=== PATIENT | male | born 1950 | race Caucasian/White ===

== ENCOUNTER → 2019-06-16 | Outpatient (CLI) | payer BC ==
[~2019-06-16] MED LIST: LISINOPRIL20 MG PO; PROTONIX 20 MG20 M1 PO
== END ==
LOC: M.MRI 06-15 11:30
DX: S83.241A Other tear of medial meniscus, current injury, right knee, initial encounter (principal); S83.281A Other tear of lateral meniscus, current injury, right knee, initial encounter; M17.11 Unilateral primary osteoarthritis, right knee; M25.461 Effusion, right knee; M65.861 Other synovitis and tenosynovitis, right lower leg; X58.XXXA Exposure to other specified factors, initial encounter; Y93.89 Activity, other specified; Y92.89 Other specified places as the place of occurrence of the external cause; Y99.8 Other external cause status

== ENCOUNTER → 2019-06-25 | Outpatient (CLI) | payer BC ==
[~2019-06-25] VITALS: Ht 180.3 cm; Wt 93.9 kg
[2019-06-25 09:30] LABS: HEMATOCRIT 44.3 % (42.0-52.0); HEMOGLOBIN 15.4 gm/dL (14.0-18.0); MCH 30.8 pg (26.0-34.0); MCHC 34.7 g/dL (28.0-37.0); MCV 88.8 fL (80.0-100.0); MPV 6.6 fl. (7.2-11.1); RBC 4.99 mil/uL (4.50-6.00); RDW-CV 15.2 % (10.5-14.5); WBC 5.9 thou/uL (4.0-11.0)
[2019-06-25 09:30] LABS: URINE BILIRUBIN NEGATIVE (Negative); URINE BLOOD TRACE (Negative); URINE CLARITY CLEAR; URINE COLOR YELLOW; URINE GLUCOSE-RANDOM NEGATIVE (Negative); URINE KETONES NEGATIVE (Negative); URINE LEUKOCYTES-REFLEX NEGATIVE (Negative); URINE NITRITE-REFLEX NEGATIVE (Negative); URINE PROTEIN NEGATIVE (Negative); URINE SPECIFIC GRAVITY 1.015 (1.005-1.030); URINE UROBILINOGEN 0.2 E.U./dl (0.2-1.0)
[2019-06-25 09:34] LABS: PROTIME 10.7 Seconds (9.20-11.50)
[2019-06-25 09:46] LABS: ALBUMIN 3.8 g/dL (3.4-5.0); CALCIUM 8.6 mg/dL (8.5-10.1); CREATININE 0.9 mg/dL (0.6-1.3); TOTAL PROTEIN 7.4 g/dL (6.4-8.2)
--- NOTE | 2019-06-25 16:42 | EKG ---
[place] [address] ELECTROCARDIOGRAM REPORT Name: ARIANA LIRA Room: PRE IN [facility]#: [id number] Admission: Attend Phys: Otilio Menendez Discharge: Date of : 54 Date of Service: 06/25/19951 Report #: [id number] THIS REPORT FOR: //name// [facility] Test Date: 2019-06-25 Test Time: 09:52:13 Pat Name: ARIANA LIRA Department: Room: Gender: Rn Ostomy: : 1950 Requested By: Michael Young Order Number: [id number] Ashly MD: Eric Bales Measurements Intervals [place] Rate: 67 P: 30 WI: 154 QRS: -2 QRSD: 124 T: 62 QT: 436 QTc: 461 Interpretive Statements Sinus rhythm Minor IVCD No previous ECG available for comparison Electronically Signed On 06-25-2019 16:41:22 CDT by Eric Bales [email or web address] <ELECTRONICALLY SIGNED> By: Eric Bales MD, [facility] 06/25/19 [id number] [id number] Eric Bales MD, FACC /EPI
== END ==
LOC: M.PRE → M.LAB 08:00 → M.PRE 07-07 06:23 → EDSTATUS 07-07 08:52 → M.PRE 07-07 09:01
PROVIDERS: Orthopaedic Surgery
DX: Z01.818 Encounter for other preprocedural examination (principal); M17.11 Unilateral primary osteoarthritis, right knee